=== PATIENT | male | born 1960 | race African-American/Black ===

== ENCOUNTER → 2016-10-18 | Outpatient (CLI) | payer MEDICARE, MEDICAID ==
--- NOTE | 2016-10-18 18:30 | RAD ---
APPROVED REPORT Test Type: Exercise Stress Nurse/Tech: Kalina Chadwick R.N. Test Indications: Chest pain with exertion. Cardiac History: SR Medications: SEE EMR Medical History: SEE EMR Resting ECG: SR Resting Heart Rate: 69 bpm Resting Blood Pressure: 149/83mmHg Pretest Chest Pain: None Nurse/Tech Notes S1S2, lungs CTA, denied chest pain and SOA. Consent: The procedure was explained to the patient in lay terms. Informed consent was witnessed. Ward eout was entered into [employer]. History and Stress Test performed by Kalina Chadwick R.N. Stress Symptoms SOA. POST EXERCISE Reason for Termination: Reached target heart rate Target HR: 139 Max HR: 149 bpm 107% of Maximum Predicted HR: 164 bpm Exercise duration: 6:50 min:sec, 2 Stage Exercise capacity: 9.6METs Max Blood Pressure: 206/71mmHg Blood Pressure response to exercise: Abnormal increase in blood pressure during stress. Heart Rate response to exercise: Normal Chest Pain: No. Arrhythmia: No. ST Change: No. INTERPRETATION Stress EKG Conclusion: No acute changes were noted. Imaging Protocol IMAGE PROTOCOL: Rest Tc-99m/stress Tc-99m 1 day Rest: Stress: Viability: Radiopharm.Tc99m RhyltsocaRn54o Sestamibi Dose12.7mCi 33mCi Img Date 10/18/2016 10/18/2016 Inj-Img [id number]. 90min. Rest Admin Site:IV - Left WristAdministrator:SANDRO Guillaume Stress Admin Site: IV - Left WristAdministrator: Stanford Danielle, RT (R)(N) STRESS DATA End Diast. Vol.98.0mlAv. Heart Rate95.0bpm End Syst. Vol.27.0mlCO Index BSA0.0L/min Myocardial Bnmb062.0gEject. Nbmjyvxx70.0% Stress Rates Pk. Fill Rate3.61EDV/secLVtime Pk. Fill 183.99msec Pk. Empty Rate5.50ESV/secLVtime Pk. Rgepw442.74msec 07/10 Pk. Fill0.98EDV/sec Stress Scores Regional WT1.00Summed WT9.00 Regional WM0.00Summed WM0.00 LV Perf. Quant 17 Seg. SSS0.00 17 Seg. SRS1.00 17 Seg. SDS0.00 Stress Defect Extent (% LAD)0.00Rest Defect Extent (% LAD)0.00Rev. Defect Extent (% LAD)0.00 Stress Defect Extent (% LCX) 0.00Rest Defect Extent (% LCX)12.50Rev. Defect Extent (% LCX)0.00 Stress Defect Extent (% RCA)0.00Rest Defect Extent (% RCA)0.00Rev. Defect Extent (% RCA)0.00 Stress Defect Extent (% PARAS)0.00Rest Defect Extent (% PARAS)2.80Rev. Defect Extent (% PARAS)0.00 Conclusion 1. Exercised patient on the Jonnie protocol for a total of 6 minutes and 50 seconds. 2. The exercise was terminated for reaching target heart rate. There was no chest pain. 3. Electrocardiographic changes suggestive of myocardial ischemia. Normal blood pressure response. No arrhythmias. 4. No perfusion defects to suggest myocardial ischemia or scar. 5. Normal wall motion and wall thickening with an ejection fraction of 72.%. 6. Scan indicates low risk for future cardiac events.
== END | disposition home or self-care (01) ==
LOC: NM 09:11
PROVIDERS: ATTEND Specialist
DX: R07.89 Other chest pain (principal); I10 Essential (primary) hypertension; E11.9 Type 2 diabetes mellitus without complications; Z87.891 Personal history of nicotine dependence; Z79.01 Long term (current) use of anticoagulants
CPT/HCPCS: 78452; 93017; 96374; 96375; 96376; A9500